=== PATIENT | female | born 2005 | race Asian ===

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

== ENCOUNTER 2025-07-29 10:33 | Emergency (ER) | payer OTHER, SELFPAY ==
[2025-07-29 10:45] VITALS: BP 130/82; PULSE 70; RESP 16; TEMP 36.6; O2SAT 98; BMI 18.3
--- NOTE | 2025-07-29 11:06 | DI.RAD.S_ITS ---
PROCEDURE: XR FEMUR RT MIN 2V INDICATIONS: glass in anterior thigh TECHNIQUE: 2 views of the femur were acquired. COMPARISON: None. FINDINGS: Bones: No fractures or dislocations. No suspicious bony lesions. Soft tissues: No suspicious soft tissue calcifications or masses. No radiopaque foreign body. IMPRESSION: No acute bony abnormality. No radiopaque foreign body. Dictated by: David Wang M.D. on 07/29/2025 at 11:54 Approved by: David Wang M.D. on 07/29/2025 at 11:54
--- NOTE | 2025-07-29 12:17 | ED.SKABFB ---
HPI - Skin/Abscess/Foreign Bdy <Pat Payton PA-C - Last Filed: 07/29/25 19:16> General Chief complaint: Skin/Abscess/Foreign Body Stated complaint: Glass Pieces from Dupixent Injections in thighs Time Seen by Provider: 07/29/25 11:06 History of Present Illness HPI narrative: Perlita Velásquez is a very pleasant 19-year-old female with a past medical history of asthma and eczema who presents to the emergency department for concern of possible glass foreign body in her right thigh. Patient states last night she was giving herself her by monthly Dupixent injection when the autoinjector was malfunctioning and not properly injecting. She attempted to inject herself multiple times in the left inner thigh and then attempted to inject herself multiple times in the right inner thigh, eventually did inject but she realized when she pulled the autoinjector offer thigh there was a small shard of glass stuck in her skin. She pulled this out but was concerned there may be residual glass left over. She has small puncture wounds on both thighs, no other skin rashes, drainage, no fevers or other symptoms. Related Data Home Medications ?Medication ?Instructions ?Recorded ?Confirmed Peristeen Anal Irrigation 500 ml irrigation DAILY 04/15/19 04/15/19 albuterol sulfate 90 mcg/actuation 4 inh inhalation PRN PRN Shortness 04/15/19 04/15/19 breath activated powder inhaler Of Breath cholecalciferol (vitamin D3) 25 1,000 unit PO DAILY 04/15/19 04/15/19 mcg (1,000 unit) capsule (Vitamin D3) fexofenadine 180 mg tablet 180 mg PO DAILY 04/15/19 04/15/19 fluticasone propionate 110 2 puff inhalation BID 04/15/19 04/15/19 mcg/actuation HFA aerosol inhaler (Flovent HFA) loperamide 2 mg tablet 4 mg PO DAILY 04/15/19 04/15/19 methylcellulose (laxative) 500 mg 1,500 mg PO DAILY 04/15/19 04/15/19 tablet Previous Rx's ?Medication ?Instructions ?Recorded prednisone 10 mg tablet 10 mg PO DAILY #30 tabs 04/15/19 Allergies Allergy/AdvReac Type Severity Reaction Status Date / Time midazolam (From Versed) Allergy Severe Rash Verified 04/15/19 16:46 latex Allergy Verified 04/15/19 16:47 Review of Systems <Pat Payton PA-C - Last Filed: 07/29/25 19:16> Review of Systems ROS Unobtainable: All systems reviewed & are unremarkable except as noted in HPI and below Exam <Pat Payton PA-C - Last Filed: 07/29/25 19:16> Narrative Exam Narrative: GENERAL: 19 year old patient appears stated age. Well-developed patient, in no acute distress. HEAD: Atraumatic. Normocephalic. NECK: Trachea midline. Cervical ROM intact. CARDIOVASCULAR: Regular rate RESPIRATORY: ?Nonlabored respirations. ?Speaking in clear, full sentences. NEURO: AOx3. ?Clear speech. ?Moves all 4 extremities appropriately. SKIN: Patient has multiple small needle injection/puncture wounds left inner thigh, about 5 puncture wounds right inner thigh with 1 small spot that is slightly larger about 2 mm. There is no visible or palpable foreign bodies. No surrounding erythema, drainage, induration or fluctuance. Initial Vital Signs Initial Vital Signs: Vital Signs Temperature 97.8 F 07/29/25 10:45 Pulse Rate 70 07/29/25 10:45 Respiratory Rate 16 07/29/25 10:45 Blood Pressure 130/82 07/29/25 10:45 Pulse Oximetry 98 07/29/25 10:45 Oxygen Delivery Method Room Air 07/29/25 10:45 <Madison Castro DO - Last Filed: 08/03/25 17:04> Initial Vital Signs Initial Vital Signs: Vital Signs Temperature 97.8 F 07/29/25 10:45 Pulse Rate 70 07/29/25 10:45 Respiratory Rate 16 07/29/25 10:45 Blood Pressure 130/82 07/29/25 10:45 Pulse Oximetry 98 07/29/25 10:45 Oxygen Delivery Method Room Air 07/29/25 10:45 Course <Pat Payton PA-C - Last Filed: 07/29/25 19:16> Orders Ordered: Discontinued Medications Bacitracin (Bacitracin Oint 0.9 Gm Pckt) 1 applic TOP NOW ONE Stop: 07/29/25 12:31 Last Admin: 07/29/25 12:34 Dose: 1 applic Documented By: GW Vital Signs Vital signs: Vital Signs - 8 hr 07/29/25 12:52 Pulse Rate 72 Respiratory Rate 16 Blood Pressure 121/77 Pulse Oximetry 99 Oxygen Delivery Method Room Air <Madison Castro DO - Last Filed: 08/03/25 17:04> Orders Ordered: Discontinued Medications Bacitracin (Bacitracin Oint 0.9 Gm Pckt) 1 applic TOP NOW ONE Stop: 07/29/25 12:31 Last Admin: 07/29/25 12:34 Dose: 1 applic Documented By: CARMEL Vital Signs Vital signs: Vital Signs - 8 hr 07/29/25 12:52 Pulse Rate 72 Respiratory Rate 16 Blood Pressure 121/77 Pulse Oximetry 99 Oxygen Delivery Method Room Air MDM - Skin/Abscess/Foreign Bdy <Pat Payton PA-C - Last Filed: 07/29/25 19:16> Medical Records Attestation: I reviewed the patient's medical records. Imaging Data Right Femur XR: Radiologist's Impression: PROCEDURE: XR FEMUR RT MIN 2V INDICATIONS: glass in anterior thigh TECHNIQUE: 2 views of the femur were acquired. COMPARISON: None. FINDINGS: Bones: No fractures or dislocations. No suspicious bony lesions. Soft tissues: No suspicious soft tissue calcifications or masses. No radiopaque foreign body. IMPRESSION: No acute bony abnormality. No radiopaque foreign body. Dictated by: David Wang M.D. on 07/29/2025 at 11:54 Approved by: David Wang M.D. on 07/29/2025 at 11:54 [facility] Narrative Medical decision making narrative: 19-year-old female with a past medical history of asthma and eczema who presents to the emergency department for concern of possible glass foreign body in her right thigh. Differential diagnosis includes but is not limited to glass foreign body, puncture wound, etc. On exam the patient is in no acute distress, nontoxic appearing, vital signs within normal limits. Physical exam does not reveal any signs concerning for retained foreign body and x-ray does not reveal radiopaque foreign body. At this time I recommend patient keep area clean, covered with ointment and a bandage. Bacitracin and bandage applied in the ED. Discussed possibilities of retained foreign body and appropriate treatment however low suspicion for this at this time. Discussed ER return precautions. Patient verbalized understanding of all information agreeable with the plan. She is stable and ambulatory for discharge home. Discharge Plan Departure Patient Disposition: Home Clinical Impression: Glass foreign body in thigh Instructions: DI for Removal of Foreign Body From Skin Activity Restrictions/Additional Instructions: Dear Perlita, Thank you for coming to the emergency department. I am sorry that you had difficulty with your Dupixent injection. Today your x-ray and your physical exam did not reveal any retained glass foreign body. Please keep ointment such as Vaseline, Aquaphor antibiotic ointment on your right thigh injection site with a bandage. Please return to the emergency department if you developed increased redness streaking up or down the leg, pus draining from the room, fevers or any other concerns. Please follow up with your primary care doctor. Please follow up with your primary care doctor within the next 2-3 days for ER follow-up. (If you do not have a PCP you can call [phone]. ?to schedule an appointment with an [facility] Primary Care Provider) IF YOU DEVELOP ANY NEW OR WORSENING SYMPTOMS, RETURN TO THE ER! Please read the attached instructions, they highlight more specific treatments and interventions for you at home. Thank you for letting me participate in your care, Pat Payton PA-C Prescriptions: No Action loperamide 2 mg Tablet 4 mg PO DAILY fexofenadine 180 mg Tablet 180 mg PO DAILY methylcellulose (laxative) 500 mg Tablet 1,500 mg PO DAILY Flovent HFA 110 mcg/actuation Hfa Aerosol Inhaler 2 puff INHALATION BID cholecalciferol (vitamin D3) [Vitamin D3] 1,000 unit Capsule 1,000 unit PO DAILY albuterol sulfate 90 mcg/actuation Aerosol Powdr Breath Activated 4 inh INHALATION PRN PRN (Reason: Shortness Of Breath) Peristeen Anal Irrigation 500 ml 500 ml irrigation DAILY prednisone 10 mg tablet 10 mg PO DAILY Qty: 30 0RF Rx Instructions: Day 1,2,3: 40mg PO Daily Day 4,5,6: 30mg PO Daily Day 7,8,9: 20mg PO Daily Day 10,11,12: 10mg PO Daily #30 Referrals: Provider,PQF [Primary Care Provider, Medical] Stand Alone Forms: Patient Portal/API ED Sign-out <Madison Castro, - Last Filed: 08/03/25 17:04> Cosign ED Attending Ivan Attestation: I was immediately available in the department for consultation.
[2025-07-29] MEDS: BACITRACIN OINT 0.9 GM PCKT 1 APPLIC TOP (12:34)
[2025-07-29 12:52] VITALS: BP 121/77; PULSE 72; RESP 16; O2SAT 99
== END 2025-07-29 12:53 | disposition home or self-care (01) ==
PROVIDERS: Emergency Provider Physician Assistant
DX: S70.351A Superficial foreign body, right thigh, initial encounter (principal); W45.8XXA Other foreign body or object entering through skin, initial encounter
CPT/HCPCS: 73552; 99282; 99283